=== PATIENT | male | born 1970 | race Caucasian/White ===

== ENCOUNTER 2018-04-21 13:09 | Outpatient (CLI) | payer MEDICAID | END 2018-04-21 13:10 | disposition critical access hospital (66) | LOC: EMS 13:09 | PROVIDERS: ATTEND Surgery | DX: M54.5 Low back pain (principal); W17.89XA Other fall from one level to another, initial encounter; Y92.009 Unspecified place in unspecified non-institutional (private) residence as the place of occurrence of the external cause | CPT/HCPCS: A0425; A0427; A0999 ==

== ENCOUNTER 2018-04-21 13:33 | Emergency (ER) | payer OTHER, MEDICAID ==
[2018-04-21] MEDS ORDERED: HYDROmorphone 1 MG/ML CARPUJECT IVP STA (13:43)
[2018-04-21] MEDS ORDERED: SODIUM CHLORIDE 0.9% 1,000 ML IV ONE (13:43)
[2018-04-21] MEDS ORDERED: ONDANSETRON 4 MG/2 ML VIAL IVP STA (13:43)
--- NOTE | 2018-04-21 14:08 | ED Physician Documentation ---
PD HPI HEAD INJURY - Stated complaint Stated Complaint: FALL - Chief complaint Chief Complaint: Trauma Trung - History obtained from History obtained from: Patient, EMS - History of Present Illness Mechanism of head injury: Fell Quality of pain: Pain - Additional information Additional information: 48-year-old male presents the emergency department after falling 9 feet onto his back, the patient reports head, neck and upper and lower back pain. The patient denies motor or sensory changes in his lower extremities. No urinary retention. The patient denies chest pain or abdominal pain.The patient has no reports of upper extremity or lower extremity trauma. Symptoms are described as moderate. No relieving factors. No other associated symptoms. Review of Systems Constitutional: denies: Fever, Chills Eyes: denies: Photophobia, Discharge Ears: denies: Ear pain Nose: denies: Congestion Throat: denies: Sore throat Cardiac: denies: Chest pain / pressure, Palpitations Respiratory: denies: Dyspnea, Cough GI: denies: Abdominal Pain : denies: Unable to Void, Incontinent Skin: denies: Laceration (s) Musculoskeletal: reports: Neck pain, Back pain. denies: Extremity pain, Joint pain Neurologic: reports: Head injury Immunocompromised: denies: Chemotherapy PD PAST MEDICAL HISTORY - Present Medications Home Medications: Ambulatory Orders Medication Instructions Recorded Confirmed Cyclobenzaprine [Flexeril] 10 mg PO TID PRN #20 tablet 04/21/18 Hydrocodone/Acetaminophen 1 - 2 each PO Q6H PRN #20 tablet 04/21/18 [Hydrocodon-Acetaminophen 5-325] Naproxen [Naprosyn] 500 mg PO BID PRN 30 Days #30 04/21/18 tablet - Allergies Allergies/Adverse Reactions: Allergies Allergy/AdvReac Type Severity Reaction Status Date / Time No Known Drug Allergies Allergy Verified 04/21/18 13:39 PD ED PE NORMAL - General General: Alert and oriented X 3 - Respiratory Respiratory: No respiratory distress - Abdomen Abdomen: Soft, Non tender - Back Back: Other (The patient has tenderness along the thoracic and lumbar spine, there is no contusion or deformity to the back) - Extremities Extremities: No deformity, No tenderness to palpate, Normal ROM s pain - Neuro Neuro: Alert and oriented X 3, No motor deficit, Normal speech Eye Opening: Spontaneous Motor: Obeys Commands Verbal: Oriented GCS Score: 15 - Psych Psych: Normal mood PD ED PE EXPANDED - General General: In Pain - HEENT HEENT: Head injury, PERRL, EOMI, Ears normal, Moist mucous membranes - Eyes Eyes: PERRL, EOMI, Nl conjunctiva/sclera - Neck Neck: Soft tissue TTP - Cardiac Cardiac: Regular Rate, Radial strong equal, Pedal strong equal - Respiratory Respiratory: Clear to ausultation pan - Abdomen Abdomen: Normal Bowel sounds Results - Vitals Vitals: Vital Signs - 24 hr 04/21/18 04/21/18 04/21/18 13:33 16:49 17:25 Temperature 36.7 C Heart Rate 87 77 76 Respiratory 20 16 16 Rate Blood Pressure 149/101 H 138/86 H 141/89 H O2 Saturation 94 96 95 Oxygen O2 Source Room air - Labs Labs: Laboratory Tests 04/21/18 04/21/18 14:03 14:03 WBC 11.8 H RBC 4.85 Hgb 15.4 Hct 44.7 MCV 92.2 MCH 31.7 H MCHC 34.4 RDW 12.7 Plt Count 241 MPV 8.5 Neut # (Auto) 9.4 H Lymph # (Auto) 1.6 Kerr # (Auto) 0.7 Eos # (Auto) 0.1 Baso # (Auto) 0.0 Absolute Nucleated RBC 0.00 Nucleated RBC % 0.0 Sodium 139 Potassium 4.1 Chloride 107 Carbon Dioxide 26 Anion Gap 6.0 BUN 14 Creatinine 1.0 Estimated GFR (MDRD) 79 L Glucose 87 Calcium 9.2 Total Bilirubin 1.1 H AST 23 ALT 20 Alkaline Phosphatase 70 Total Protein 7.5 Albumin 4.4 Globulin 3.1 Albumin/Globulin Ratio 1.4 Lipase 26 - Rads (name of study) CT head/cervical spine/thoracic spine/lumbar spine Radiology: See rad report (L2 compression fracture with no retropulsion) PD MEDICAL DECISION MAKING - ED course ED course: The findings were discussed with the on-call spine surgeon at [facility], he independently reviewed the CT images. Presently the patient' s fracture does not represent a fracture that would necessitate acute surgical intervention. He recommends discharge home and outpatient follow-up with primary care and the spine clinic. The patient's number was given and the spine clinic will contact the patient for follow-up appointment. The findings and plan were discussed with thePatient who understands and agrees. The patient has no acute neurologic findings. I discussed warning signs for decompensation and recommended returning to the emergency department immediately for worsening or concerns - Sepsis Event Vital Signs: Vital Signs - 24 hr 04/21/18 04/21/18 04/21/18 13:33 16:49 17:25 Temperature 36.7 C Heart Rate 87 77 76 Respiratory 20 16 16 Rate Blood Pressure 149/101 H 138/86 H 141/89 H O2 Saturation 94 96 95 Oxygen O2 Source Room air Departure - Departure Disposition: 01 Home, Self Care Clinical Impression: Lumbar compression fracture Qualifiers: Encounter type: initial encounter Lumbar vertebra fracture level: L2 Fracture type: closed Qualified Code(s): S32.020A - Wedge compression fracture of second lumbar vertebra, initial encounter for closed fracture Closed head injury Qualifiers: Encounter type: initial encounter Qualified Code(s): S09.90XA - Unspecified injury of head, initial encounter Fall Qualifiers: Encounter type: initial encounter Qualified Code(s): W19.XXXA - Unspecified fall, initial encounter Condition: Good Instructions: ED Fx Comp Vertebral, ED Head Injury Closed Ch Follow-Up: [facility] [Provider Group] - Within 3 Days (Please follow-up with this L&I provider for further workup and management of your pain and please asked them to refer you to physical therapy) Prescriptions: Cyclobenzaprine [Flexeril] 10 mg PO TID PRN #20 tablet PRN Reason: Spasms Hydrocodone/Acetaminophen [Hydrocodon-Acetaminophen 5-325] 1 - 2 each PO Q6H PRN #20 tablet PRN Reason: pain Naproxen [Naprosyn] 500 mg PO BID PRN 30 Days #30 tablet PRN Reason: Pain Comments: Please return for worsening symptoms or any concerns. The spine clinic at [facility] should be contacting you in the next 2 days to schedule a follow-up appointment. Discharge Date/Time: 04/21/18 17:30
[2018-04-21 14:11] LABS: BASOPHILS % (AUTO) 0.3 %; EOSINOPHILS # (AUTO) 0.1 10^3/uL (0.0-0.7); EOSINOPHILS % (AUTO) 0.8 %; HGB - HEMOGLOBIN 15.4 g/dL (14.0-18.0); LYMPHOCYTES # (AUTO) 1.6 10^3/uL (1.5-3.5); LYMPHOCYTES % (AUTO) 13.7 %; MEAN CORPUSCULAR HEMOGLOBIN 31.7 pg (27.0-31.0); MEAN CORPUSCULAR HGB CONC 34.4 g/dL (32.0-36.0); MEAN CORPUSCULAR VOLUME 92.2 fL (80.0-94.0); MEAN PLATELET VOLUME 8.5 fL (7.4-11.4); MONOCYTES # (AUTO) 0.7 10^3/uL (0.0-1.0); MONOCYTES % (AUTO) 5.7 %; NEUTROPHILS # (AUTO) 9.4 10^3/uL (1.5-6.6); NEUTROPHILS % (AUTO) 79.5 %; PLT - PLATELET COUNT 241 10^3/uL (130-450); RED BLOOD COUNT 4.85 10^6/uL (4.70-6.10); RED CELL DISTRIBUTION WIDTH 12.7 % (12.0-15.0); WHITE BLOOD COUNT 11.8 x10^3/uL (4.8-10.8)
[2018-04-21 14:27] LABS: ALBUMIN 4.4 g/dL (3.2-5.5); ALBUMIN/GLOBULIN RATIO 1.4 (1.0-2.2); BILIRUBIN,TOTAL 1.1 mg/dL (0.2-1.0); CALCIUM 9.2 mg/dL (8.5-10.3); TOTAL PROTEIN 7.5 g/dL (6.7-8.2)
--- NOTE | 2018-04-21 15:06 | CT Report ---
Procedure Date: 04/21/2018 Accession Number: [id number] / [id number] Procedure: CT - Head W/O CPT Code: FULL RESULT: EXAM: CT HEAD EXAM DATE: 04/21/2018 02:48 PM. CLINICAL HISTORY: 10-foot fall. Head injury. COMPARISON: None. TECHNIQUE: Multiaxial CT images were obtained from the foramen magnum to the vertex. Reformats: Coronal. IV contrast: None. In accordance with CT protocol optimization, one or more of the following dose reduction techniques were utilized for this exam: automated exposure control, adjustment of mA and/or KV based on patient size, or use of iterative reconstructive technique. FINDINGS: Parenchyma: No intraparenchymal hemorrhage. No evidence of mass, midline shift, or CT findings of infarction. Carey-white differentiation is distinct. Extraaxial Spaces: Normal for age. No subdural or epidural collections identified. Ventricles: Normal in size and position. Sinuses and Orbits: Imaged paranasal sinuses, orbits, and mastoids show no significant abnormality. Bones: No evidence of fracture or calvarial defect. Other: None. IMPRESSION: Normal head CT. RADIA
[2018-04-21] MEDS ORDERED: HYDROmorphone 1 MG/ML CARPUJECT IM STA (15:20)
[2018-04-21] MEDS ORDERED: diazePAM INJ 5 MG/ML SYRINGE IVP STA (15:21)
[2018-04-21] MEDS ORDERED: KETOROLAC 60 MG/2 ML VIAL IVP STA (15:21)
--- NOTE | 2018-04-21 15:21 | XRAY Report ---
Procedure Date: 04/21/2018 Accession Number: [id number] / [id number] Procedure: XR - Chest 2 View X-Ray CPT Code: 03916 FULL RESULT: EXAM: CHEST RADIOGRAPHY EXAM DATE: 04/21/2018 03:03 PM. CLINICAL HISTORY: Fall, pain. COMPARISON: None. TECHNIQUE: 2 views. FINDINGS: Lungs/Pleura: No focal opacities evident. No pleural effusion. No pneumothorax. Normal volumes. Mediastinum: Heart and mediastinal contours are unremarkable. Other: None. IMPRESSION: Normal 2-view chest radiography. RADIA
--- NOTE | 2018-04-21 15:35 | CT Report ---
Procedure Date: 04/21/2018 Accession Number: [id number] / [id number] Procedure: CT - Cervical Spine W/O CPT Code: FULL RESULT: EXAM: CT CERVICAL SPINE WITHOUT CONTRAST DATE: 04/21/2018 02:48 PM. HISTORY: Fall, neck pain. COMPARISONS: Concurrent chest radiograph and CT of the thoracic and lumbar spine as well as CT head. TECHNIQUE: Thin-section axial images were acquired of the cervical spine without contrast. Post-processing: Coronal and sagittal reformats. Other: None. In accordance with CT protocol optimization, one or more of the following dose reduction techniques were utilized for this exam: automated exposure control, adjustment of mA and/or KV based on patient size, or use of iterative reconstructive technique. FINDINGS: Alignment: No scoliosis or spondylolisthesis. There is straightening and reversal of the typical cervical lordosis centered at C5-C6, possibly due to positioning with rolled towel present behind the patient's upper neck. Bones: No fracture. No suspicious focal osseous lesion. Normal variant partial fusion of the left first and second ribs posteriorly. Interspace Levels/Facets: Minimal degenerative change at the atlantodental joint. Moderate disk height loss and surrounding degenerative endplate changes at C5-C6. Other levels appear preserved. No significant degenerative facet disease. No evidence of moderate to severe canal stenosis at any level. Greatest and minimal canal narrowing at C5-C6 due to posterior disk-osteophyte complex. Greatest and severe right, moderate left foraminal stenosis at C5-C6 due to uncovertebral spurring, no significant stenosis at other levels. Musculature: Normal. No fatty atrophy. Other: Small 8 mm hypodensity within the posterior aspect of the right thyroid lobe does not warrant imaging follow-up given the size and is statistically likely benign. Otherwise, prevertebral and paravertebral soft tissues are unremarkable. The lung apices are clear. IMPRESSION: No acute osseous abnormality or malalignment of the cervical spine. There is focal degenerative spondylitic change at C5-C6 without significant canal stenosis. RADIA
--- NOTE | 2018-04-21 15:46 | CT Report ---
Procedure Date: 04/21/2018 Accession Number: [id number] / [id number] Procedure: CT - Lumbar Spine W/O CPT Code: FULL RESULT: EXAM: CT LUMBAR SPINE WITHOUT CONTRAST EXAM DATE: 04/21/2018 02:48 PM. CLINICAL HISTORY: Back pain. COMPARISONS: Same day chest radiograph. Concurrent CT of the cervical and thoracic spine. TECHNIQUE: Thin-section axial images were acquired of the lumbar spine from T12 to S1 without contrast. Post-processing: Coronal and sagittal reformats. Other: None. In accordance with CT protocol optimization, one or more of the following dose reduction techniques were utilized for this exam: automated exposure control, adjustment of mA and/or KV based on patient size, or use of iterative reconstructive technique. FINDINGS: Alignment: Minimal convex left curvature of the lumbar spine measuring less than 10 degrees may be positional. Trace grade 1 retrolisthesis of L3 on L4 measures 3 mm. Bones: Five [id number] lumbar vertebral bodies are present. Acute minimal superior endplate compression fracture of L2 involving the anterior column and possibly minimally the middle column. No evidence of extension or involvement of the posterior elements. This results in approximately 25% height loss anteriorly. Anterior superior corner of the L2 vertebral body is minimally displaced anteriorly. No bony retropulsion. No additional fracture demonstrated. Disk Levels/Facets: No significant disk height loss at any level. Minimal circumferential disk bulges at L4-L5 and L5-S1 without significant canal stenosis. No evidence of significant foraminal stenosis at any level. Musculature: Normal. No fatty atrophy. Other: Trace retroperitoneal hematoma surrounding the L2 superior endplate compression fracture. Mild aortobiiliac calcific atherosclerosis. IMPRESSION: 1. Mild superior endplate wedge compression fracture of L2 resulting in approximately 25% height loss (AO classification A1 fracture). 2. Minimal lower lumbar degenerative disk disease without significant canal or foraminal stenosis demonstrated at any level. 3. Trace retrolisthesis of L3 on L4. RADIA The above findings were discussed with [place] by Dr. Nicholas Farris at 15:44 hrs on 04/21/18.
[2018-04-21] MEDS ORDERED: diazePAM 5 MG TABLET PO STA (15:47)
--- NOTE | 2018-04-21 15:48 | CT Report ---
Procedure Date: 04/21/2018 Accession Number: [id number] / [id number] Procedure: CT - Thoracic Spine W/O CPT Code: FULL RESULT: EXAM: CT THORACIC SPINE WITHOUT CONTRAST EXAM DATE: 04/21/2018 02:48 PM. CLINICAL HISTORY: Back pain. COMPARISONS: Concurrent cervical and lumbar spine radiographs. TECHNIQUE: Thin-section axial images were acquired of the thoracic spine from concurrent chest radiograph to L1 without contrast. Post-processing: Coronal and sagittal reformats. Other: None. IV Contrast: None. In accordance with CT protocol optimization, one or more of the following dose reduction techniques were utilized for this exam: automated exposure control, adjustment of mA and/or KV based on patient size, or use of iterative reconstructive technique. FINDINGS: Alignment: No scoliosis or spondylolisthesis. Bones: No fracture or bone lesion. There are 12 rib pairs. There is normal variant partial fusion of the left first and second ribs posteriorly. Disk Levels/Facets: No significant degenerative facet disease at any level. No evidence of significant canal or foraminal stenosis at any level. Minimal disk height loss and surrounding degenerative endplate changes predominate at T6-T7 and T7-T8. Musculature: Normal. No fatty atrophy. Other: Visualized mediastinum and upper abdomen unremarkable. There is minimal bibasilar dependent atelectasis. There is mild diffuse smooth bronchial wall thickening with foci of mucous plugging at the lung bases, for example on the right series 4 image 122. Mild upper lobe predominant centrilobular and paraseptal emphysema present. A cyst is partially visualized in the right upper lobe (3/60). IMPRESSION: 1. No fracture or malalignment of the thoracic spine. 2. Mild upper lobe predominant centrilobular and paraseptal emphysema. Additional findings suggest chronic bronchitis. RADIA
[2018-04-21 17:30] VITALS: BP 141/89
== END 2018-04-21 17:30 | disposition home or self-care (01) ==
LOC: EDUNIT# → ED 13:33
DX: S32.020A Wedge compression fracture of second lumbar vertebra, initial encounter for closed fracture (principal); S09.90XA Unspecified injury of head, initial encounter; W17.89XA Other fall from one level to another, initial encounter
CPT/HCPCS: 36415; 70450; 71046; 72125; 72128; 72131; 80053; 83690; 85025; 96374; 96375; 99283; A9270; J1170; 1040M